=== PATIENT | female | born 1950 | race Caucasian/White ===

== ENCOUNTER 2016-10-09 13:13 | Outpatient (CLI) | payer MEDICARE | END 2016-10-09 13:14 | disposition home or self-care (01) | DX: F41.1 Generalized anxiety disorder (principal); I10 Essential (primary) hypertension; J44.9 Chronic obstructive pulmonary disease, unspecified ==

== ENCOUNTER 2017-01-06 14:22 | Outpatient (CLI) | payer MEDICARE | END 2017-01-06 14:23 | disposition home or self-care (01) | DX: R19.7 Diarrhea, unspecified (principal); E78.00 Pure hypercholesterolemia, unspecified ==

== ENCOUNTER 2018-03-24 06:52 | Day surgery (SDC) | payer MEDICARE, OTHER ==
[2018-03-24] MEDS: LACTATED RINGERS 1,000 ML IV ONE (07:29)
[2018-03-24] MEDS ORDERED: MIDAZOLAM 2 MG/2 ML VIAL IVP ONE (08:30)
[2018-03-24] MEDS ORDERED: fentaNYL 250 MCG/5 ML VIAL IVP ONE (08:30)
[2018-03-24 09:23] VITALS: BP 107/67
== END 2018-03-24 06:53 | disposition home or self-care (01) ==
LOC: SDS 06:52
PROVIDERS: ATTEND Surgery
PROC: 0DBP8ZX Excision of Rectum, Via Natural or Artificial Opening Endoscopic, Diagnostic (ICD-10-PCS; 2018-03-24)
PROC: 0DBN8ZX Excision of Sigmoid Colon, Via Natural or Artificial Opening Endoscopic, Diagnostic (ICD-10-PCS; principal; 2018-03-24 08:15)
DX: R19.7 Diarrhea, unspecified (principal); K57.30 Diverticulosis of large intestine without perforation or abscess without bleeding; D12.5 Benign neoplasm of sigmoid colon; K62.1 Rectal polyp; I10 Essential (primary) hypertension; J44.9 Chronic obstructive pulmonary disease, unspecified; Z79.82 Long term (current) use of aspirin
CPT/HCPCS: 45380; 45384; J3010; J7120; 88305

== ENCOUNTER 2018-10-27 09:27 | Outpatient (CLI) | payer MEDICARE, OTHER ==
--- NOTE | 2018-10-27 11:28 | MRI Report ---
Reason: CERVICALGIA Procedure Date: 10/27/2018 Accession Number: [id number] / [id number] Procedure: MRI - Cervical Spine W/O CPT Code: FULL RESULT: EXAM: MRI CERVICAL SPINE WITHOUT CONTRAST EXAM DATE: 10/27/2018 09:53 AM. CLINICAL HISTORY: Cervicalgia. Headaches and right-sided neck pain. COMPARISONS: None. TECHNIQUE: Multiplanar, multisequence T1-weighted and fluid-sensitive sequences of the cervical spine without contrast. Other: None. FINDINGS: Neurologic Structures: The visualized posterior fossa structures are unremarkable. No focal signal abnormality of the cervical spinal cord. Alignment: Alignment is abnormal. Mild degenerative anterior subluxation of C3 on C4 and C4 on C5. Mild degenerative C6 on C7 retrolisthesis is present. Cervical kyphosis is also present. Bone Marrow: Multilevel abnormal loss of the fatty marrow signal most evident involving the odontoid process and the vertebral bodies on both sides of markedly arthritic disk spaces in the cervical spine, especially severe at C5-C6 and C6-C7. The overall pattern favors a reactive arthritic change. Infection and tumor is less likely. Interspace Levels/Facets: C1-C2: Moderately prominent hypertrophic degenerative changes around the odontoid process. Prominent abnormal marrow edema of the odontoid process and the articulating lateral masses on the right. Increased fluid signal in the right lateral mass articular space. These findings are nonspecific but most likely secondary to reactive and degenerative changes from some form of arthritis. Tumor and infection is less likely. Generalized hypertrophic degenerative changes around the odontoid process are present. This is associated with only minimal ventral thecal sac indentation in the central canal is patent. C2-C3: Mild degenerative disk disease. Moderate to severe left-sided facet arthropathy. Minimal disk bulge. Patent central canal and right foramen. Mild foraminal stenosis on the left. C3-C4: Moderate degenerative disk disease. Moderate to severe bilateral facet arthropathy. Broad-based disk bulge. Mild ventral thecal sac indentation. Minimal central stenosis. No cord compression. Moderately prominent bilateral foraminal stenosis from a combination of bulging annulus, uncinate process spurring and facet arthropathy. Facet joint effusion on the right. Marked facet arthropathy on the right is associated with amorphous periarticular bone and soft tissue edema that is likely reactive and degenerative. Infectious spondylitis is a less likely diagnostic consideration but clinical correlation is suggested. C4-C5: Moderate degenerative disk disease. Minimal disk bulge. Patent central canal. Potentially severe facet arthropathy. Bilateral uncinate process spurring. These degenerative changes along with C4 on C5 anterolisthesis create the appearance of at least moderate if not severe bilateral foraminal stenosis. C5-C6: Moderate to severe degenerative disk disease. Marginal spurring and broad-based bulge. Ventral and dorsal CSF space effacement. Mild to moderate central canal stenosis. Minimal if any cord indentation anteriorly by disk bulge. Moderate facet arthropathy. Moderate to severe bilateral foraminal stenosis. C6-C7: Moderate to severe degenerative disk disease. Marginal spurring and broad-based bulge. Mild to moderate central canal stenosis without cord compression. Ventral thecal sac effacement is present by broad-based bar-like posterior disk osteophyte complex. Moderately prominent facet arthropathy. Uncinate process spurring. Potentially severe foraminal stenosis bilaterally. C7-T1: Mild facet arthropathy. Intact disk space. No disk herniation or significant stenosis. Musculature: Minimal to mild diffuse fatty atrophy. Other: No focal prevertebral edema. No abnormal epidural fluid collection. IMPRESSION: 1. Multilevel cervical spinal malalignment associated with advanced hypertrophic degenerative changes throughout the cervical spine. 2. Multilevel periarticular bone and soft tissue edema is present, more likely reactive and degenerative arthritic changes and from tumor or infection. 3. Diffuse degenerative disk disease, most prominent with central canal stenosis at C5-C6 and C6-C7. 4. Potentially significant degenerative foraminal stenosis bilaterally at multiple cervical levels as detailed above. RADIA
== END 2018-10-27 09:28 | disposition home or self-care (01) ==
LOC: DI 09:27
PROVIDERS: ATTEND Registered Nurse
DX: M50.31 Other cervical disc degeneration, high cervical region (principal); M48.02 Spinal stenosis, cervical region; M47.9 Spondylosis, unspecified; M43.12 Spondylolisthesis, cervical region
CPT/HCPCS: 72141

== ENCOUNTER 2018-12-03 09:36 | Outpatient (CLI) | payer MEDICARE, OTHER ==
--- NOTE | 2018-12-03 15:20 | XRAY Report ---
Reason: PAIN IN RIGHT FOOT Procedure Date: 12/03/2018 Accession Number: [id number] / [id number] Procedure: XR - Foot 3 View RT CPT Code: FULL RESULT: EXAM: RIGHT FOOT RADIOGRAPHY EXAM DATE: 12/03/2018 10:38 AM. CLINICAL HISTORY: Pain in right foot. COMPARISON: None. TECHNIQUE: 3 views. FINDINGS: Bones: The bones are qualitatively osteopenic; this limits evaluation for underlying fractures or masses. No fracture or dislocation is identified. Joints: Normal. No subluxations. Soft Tissues: Normal. No soft tissue swelling. IMPRESSION: No fracture or dislocation is identified. RADIA
== END 2018-12-03 09:37 | disposition home or self-care (01) ==
LOC: DI 09:36
PROVIDERS: ATTEND Internal Medicine
DX: M79.671 Pain in right foot (principal)

== ENCOUNTER 2019-12-17 10:04 | Outpatient (CLI) | payer MEDICARE, OTHER ==
--- NOTE | 2019-12-17 13:43 | MRI Report ---
Reason: EXPRESSIVE DYSPHAGIA Procedure Date: 12/17/2019 Accession Number: [id number] / [id number] Procedure: MRI - Brain W/O CPT Code: Final Report FULL RESULT: EXAM: MRI BRAIN WITHOUT CONTRAST EXAM DATE: 12/17/2019 11:06 AM. CLINICAL HISTORY: Expressive dysphagia. Memory issues for the past year. COMPARISON: None. TECHNIQUE: Multiplanar, multisequence T1-weighted and fluid-sensitive MR sequences of the brain were performed. Sequences optimized for routine evaluation. Other: None. IV Contrast: None. FINDINGS: Brain Volume: Normal for age. Parenchyma/Dura: No mass, acute infarct or hemorrhage. Mild to moderate multifocal cerebral white matter disease. Scattered patchy and nodular T2 hyperintensities which are present are nonspecific but likely attributable to aging and chronic microangiopathy. No mass effect, midline shift or abnormal subdural fluid collection. Ventricles/Cisterns: No hydrocephalus. No abnormal extra-axial fluid collection or hemorrhage. Orbits: Symmetric and unremarkable. Sella Turcica: No space-occupying lesion. IAC: Grossly symmetric and unremarkable as far as can be determined, allowing for the inherent limitations of noncontrast imaging technique. Vasculature: The major arterial skull base flow voids are present. Sinuses: Negligible paranasal sinus mucosal thickening. Clear mastoids. Bones: Prominent C2 vertebral marrow edema especially of the odontoid process and adjacent body. There also appear to be erosive cortical changes of the odontoid process and there is surrounding soft tissue thickening. Mild effacement of the ventral CSF space at the C1 level without cord compression. No focal pathologic appearing marrow signal changes in the skull and clivus. Other: None. IMPRESSION: 1. No acute intracranial abnormality. 2. Mild to moderate chronic appearing white matter T2 hyperintense signal change is likely attributable to aging and chronic microangiopathy. 3. Prominent abnormality of the C2 vertebra including marrow edema and cortical irregularity. This is likely related to reactive arthritic changes. Infection and tumor are less likely differential considerations. RADIA
== END 2019-12-17 10:05 | disposition home or self-care (01) ==
LOC: DI 10:04
PROVIDERS: ATTEND Nurse Practitioner Family
DX: F80.1 Expressive language disorder (principal)
CPT/HCPCS: 70551

== ENCOUNTER 2020-05-30 13:01 | Outpatient (CLI) | payer MEDICARE, OTHER ==
[2020-06-02 19:02] LABS: TREPONEMA AB IGG NEGATIVE
[2020-06-03 08:22] LABS: METHYLMALONIC ACID 295 nmol/L (87-318)
== END 2020-05-30 13:02 | disposition home or self-care (01) ==
LOC: LAB.S 13:01
PROVIDERS: ATTEND Psychiatry & Neurology Neurology
DX: R41.3 Other amnesia (principal)
CPT/HCPCS: 36415; 82607; 83921; 86780

== ENCOUNTER 2021-01-31 11:12 | Outpatient (CLI) | payer MEDICARE, OTHER ==
--- NOTE | 2021-01-31 12:49 | XRAY Report ---
PROCEDURE: Shoulder 3 View RT INDICATIONS: PAIN OF RIGHT SHOULDER JOINT TECHNIQUE: 3 views of the shoulder were acquired. COMPARISON: None. FINDINGS: Bones: No fractures or dislocations but there is severe degenerative change at the right shoulder, m ost pronounced at the glenohumeral joint but also present to a moderate degree at the acromioclavicul ar joint. There is essentially alci-bn-tcqp articulation at the glenohumeral joint.. No suspicious b malena lesions. Visualized ribs appear intact. Soft tissues: No suspicious soft tissue calcifications. IMPRESSION: No acute trauma found but there is severe glenohumeral joint and moderate acromioclavicu lar joint degenerative osteoarthritis. Reviewed by: Dexter Goldsmith MD on 01/31/2021 12:48 PM PDT Approved by: Dexter Goldsmith MD on 01/31/2021 12:48 PM PDT Station ID: [id number]
== END 2021-01-31 11:13 | disposition home or self-care (01) ==
LOC: DI.S 11:12
PROVIDERS: ATTEND Registered Nurse
DX: M19.011 Primary osteoarthritis, right shoulder (principal)

== ENCOUNTER 2021-03-09 13:18 | Outpatient (CLI) | payer MEDICARE, OTHER ==
[2021-03-09] MEDS ORDERED: IOTHALAMATE MEGLUMINE 50 ML VIAL ONE (13:25)
[2021-03-09] MEDS ORDERED: ROPIVACAINE 0.5% PF 20 ML AMPULE ONE (13:28)
[2021-03-09] MEDS ORDERED: TRIAMCINOLONE 40 MG/ML VIAL ONE (13:28)
[2021-03-09] MEDS ORDERED: BUFFERED LIDOCAINE 10 ML SYRINGE ONE (13:28)
[2021-03-09] MEDS ORDERED: BUFFERED LIDOCAINE 10 ML SYRINGE IU ONE (14:43)
--- NOTE | 2021-03-09 14:43 | XRAY Report ---
PROCEDURE: Inj/Aspiration Major Joint INDICATIONS: OSTEOARTHRITIS GLENOHUMERAL JOINT CONTRAST: CONTRAST: 3ml FLUORO TIME: FLUORO TIME: .2 and NUMBER IMAGES: 1 TECHNIQUE: The indications, alternatives, benefits, risks, and complications of the procedure were explained to the patient. Written informed consent was obtained and placed in the chart. The patient was placed in an appropriate position on the fluoroscopy table, and a site was chosen for percutaneous access un lilian fluoroscopic guidance. Local anesthetic was administered using a 1% lidocaine solution. A hypod ermic or spinal needle was then used to access the symptomatic joint. Intra-articular location of th e needle tip was confirmed by injecting a small amount of contrast, followed by steroid administratio n. The needle was then withdrawn, and a bandage applied to the puncture site. FINDINGS: Joint injected: Right glenohumeral joint Medications injected: 5 mL of 40 mg/mL Kenalog and 0.5% Ropivacaine mixture. Complications: None. IMPRESSION: Successful fluoroscopically guided administration of steroid and anaesthetic solution into the right glenohumeral joint. Reviewed by: Juan Treadwell MD on 03/09/2021 2:42 PM PDT Approved by: Juan Treadwell MD on 03/09/2021 2:42 PM PDT Station ID: [id number]
[2021-03-09] MEDS ORDERED: IOTHALAMATE MEGLUMINE 50 ML VIAL IVP ONE (14:44)
[2021-03-09] MEDS ORDERED: ROPIVACAINE 0.5% PF 20 ML AMPULE IU ONE (14:45)
[2021-03-09] MEDS ORDERED: TRIAMCINOLONE 40 MG/ML VIAL IM ONE (14:48)
== END 2021-03-09 13:19 | disposition home or self-care (01) ==
LOC: DI 13:18
PROVIDERS: ATTEND Orthopaedic Surgery
DX: M19.011 Primary osteoarthritis, right shoulder (principal)
CPT/HCPCS: 20610; 77002; Q9961

== ENCOUNTER 2023-01-09 08:00 | Outpatient (CLI) | payer MEDICARE, OTHER | END 2023-01-09 23:59 | disposition home or self-care (01) | LOC: LAB.S 08:00 | PROVIDERS: ATTEND Physician Assistant Medical | DX: R35.0 Frequency of micturition (principal) | CPT/HCPCS: 87086 ==

== ENCOUNTER 2023-11-08 16:00 | Outpatient (CLI) | payer MEDICARE, OTHER | END 2023-11-08 16:01 | disposition EMS.NT | LOC: EMS 16:00 | DX: M25.531 Pain in right wrist (principal); M21.931 Unspecified acquired deformity of right forearm; R04.0 Epistaxis; S69.91XA Unspecified injury of right wrist, hand and finger(s), initial encounter; W01.0XXA Fall on same level from slipping, tripping and stumbling without subsequent striking against object, initial encounter; Y92.512 Supermarket, store or market as the place of occurrence of the external cause ==

== ENCOUNTER 2023-11-08 16:41 | Emergency (ER) | payer MEDICARE, OTHER ==
[2023-11-08 16:49] VITALS: BP 160/66; O2SAT 97
--- NOTE | 2023-11-08 17:04 | ED Physician Documentation ---
History of Present Illness - Stated complaint Stated Complaint: R WRIST INJ - Chief complaint Chief Complaint: Trauma Ext - History obtained from History obtained from: Patient, Family - History of Present Illness Timing: Today Pain level max: 6 Pain level now: 6 - Additonal information Additional information: 72-year-old female history of dementia presents with her family. She fell out of the truck today landed on the right wrist with deformity. Has an abrasion to the right side of the head. Not on blood thinners. Worse with movement, better with rest. No loss of consciousness. No vomiting. No seizure activity. Was able to ambulate after the event. Review of Systems Unable to obtain: Dementia Constitutional: denies: Fever GI: denies: Vomiting, Diarrhea Skin: denies: Rash Musculoskeletal: denies: Neck pain Neurologic: denies: Seizure PD PAST MEDICAL HISTORY - Past Medical History Past Medical History: Yes Cardiovascular: Hypertension Respiratory: None Endocrine/Autoimmune: None GI: None : None HEENT: Chronic vision loss Psych: None Musculoskeletal: Osteoarthritis Derm: None - Past Surgical History Past Surgical History: Yes /[employer]: Hysterectomy, Other - Present Medications Home Medications: Ambulatory Orders Medication Instructions Recorded Confirmed amLODIPine [Norvasc] 5 mg PO DAILY 03/23/18 03/24/18 Antidepressant 03/24/18 HYDROcod/ACETAM 5/325 [[place] 5/325] 1 - 2 ea PO Q6H PRN #14 tablet 11/08/23 - Allergies Allergies/Adverse Reactions: Allergies Allergy/AdvReac Type Severity Reaction Status Date / Time No Known Drug Allergies Allergy Verified 11/08/23 16:43 - Social History Does the pt smoke?: No Smoking Status: Never smoker Does the pt drink ETOH?: No Does the pt have substance abuse?: No - Immunizations Immunizations are current?: Yes PD ED PE NORMAL - Vitals Vital signs reviewed: Yes - General General: No acute distress, Other (Alert, pleasantly confused) - HEENT HEENT: PERRL, EOMI, Ears normal, Other (small abrasion to the R side of the periorbital area.) - Neck Neck: Supple, no meningeal sign, No bony TTP - Cardiac Cardiac: RRR - Respiratory Respiratory: No respiratory distress, Clear bilaterally - Abdomen Abdomen: Soft, Non tender, Non distended - Back Back: No spinal TTP - Derm Derm: Warm and dry - Extremities Extremities: Other (Deformity noted to the right wrist. Swelling present. Neurovascular intact. 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, No motor deficit, No sensory deficit, Normal speech Eye Opening: Spontaneous Motor: Obeys Commands Verbal: Confused GCS Score: 14 - Psych Psych: Normal mood, Normal affect Results - Vitals Vitals: Vital Signs - 24 hr 11/08/23 11/08/23 16:43 20:20 Temperature 36.8 C Heart Rate 60 Respiratory 16 16 Rate Blood Pressure 160/66 H O2 Saturation 97 Oxygen O2 Source Room air - Rads (name of study) CT head Relevant Findings:: Final report received, See rad report CT maxillofacial Relevant Findings:: Final report received, See rad report ct c spine Relevant Findings:: Final report received, See rad report R wrist xray Relevant Findings:: Final report received, See rad report R wrist xray post reduction Relevant Findings:: Final report received, See rad report Procedures - Splint (location) - Minor R wrist Splint applied by: Physician, Tech Type of splint: Sugar tong Other: Patient tolerated well, No complications, Neurovascular intact, Sling provided - Reduction Body part reduced: Right, Wrist Fracture or dislocation: Fracture Anesthesia: Hematoma block, Lidocaine (enter cc) (8) Reduction aftercare: NV intact, Xray confirms reduction, Alignment improved, Splint applied, Sling, Patient tolerated well PD Medical Decision Making - ED course Complexity details: reviewed results, re-evaluated patient, considered differential, d/w patient, d/w health care consultant ED course: 72-year-old female presents to the emergency department after a fall today, has obvious deformity of the right wrist. Hematoma block performed and the fracture was reduced. Discussed with Dr. August, orthopedics, will follow-up in the clinic. There are no acute findings on head CT, cervical spine CT or maxillofacial CT. Ambulating well in the emergency department. No evidence of hip fracture. Nontender over the spine. Abdomen is soft, nontender nondistended. Patient placed in a sling and splint. Neurovascular intact. Pain well-controlled. There is a small abrasion to the right periorbital area that was oozing a small amount of blood, therefore dermabond was applied to the area after cleaning. Patient and family counseled regarding signs and symptoms for which I believe and urgent re-evaluation would be necessary. Patient with good understanding of and agreement to plan and is comfortable going home at this time This document was made in part using voice recognition software. While efforts are made to proofread this document, sound alike and grammatical errors may occur. Departure - Departure Disposition: 01 Home, Self Care Clinical Impression: Distal radius fracture, right Qualifiers: Encounter type: initial encounter Fracture type: closed Fracture morphology: unspecified fracture morphology Qualified Code(s): S52.501A - Unspecified fracture of the lower end of right radius, initial encounter for closed fracture Right distal ulnar fracture Qualifiers: Encounter type: initial encounter Fracture type: closed Fracture morphology: unspecified fracture morphology Qualified Code(s): S52.601A - Unspecified fracture of lower end of right ulna, initial encounter for closed fracture Closed head injury Qualifiers: Encounter type: initial encounter Qualified Code(s): S09.90XA - Unspecified injury of head, initial encounter Facial laceration Qualifiers: Encounter type: initial encounter Qualified Code(s): S01.81XA - Laceration without foreign body of other part of head, initial encounter Condition: Good Instructions: ED Fx Upper Ext, ED Head Injury Closed Follow-Up: your,doctor in 1 week [Other] [facility] [Provider Group] - Within 1 week Prescriptions: HYDROcod/ACETAM 5/325 [[place] 5/325] 1 - 2 ea PO Q6H PRN #14 tablet PRN Reason: Pain Comments: Please follow-up with your doctor for further care. Please return if you worsen. It is importantly follow-up with orthopedics. I spoke with Dr. August, orthopedics [facility], he will see you in the clinic next week. Please call tomorrow to make an appointment. Your prescriptions were sent to [facility] in [place]. The glue on your head will dissolve on its own, do not apply any ointments as this may dissolve the glue early. Your head CT, maxillofacial CT T and C-spine CT do not show any acute abnormalities. I am prescribing a short course of narcotic pain medication for you. These are potentially dangerous and addictive medications that should be used carefully. These medications may constipate you. Take an tvhz-yyp-snwliih stool softener (docusate) twice daily with plenty of water while taking these medications. If you go 24 hours without a bowel movement, take fkde-wzv-kxatvvg miralax, per package instructions. Do not drink or drive while taking these medications. If you received narcotic or sedating medications while in the emergency department, do not drive for 24 hours. Store this medication in a safe, secure place and out of reach of children. It is a violation of federal law to give or sell this medication to another person or to use in a manner other than prescribed. The ED will not refill narcotic prescriptions, including prescriptions lost or stolen. To dispose of unwanted medications: 1. [facility] [address] in [place] has a medication drop box. They accept prescription medications (in pill form) Friday through Friday 9:00 a.m. to 5:00 p.m. 2. The [facility] [employer] accepts prescription medications (in pill form only) for disposal year round. Call for more information. 3. Contact the [facility] for the next [facility] sponsored prescription drug collection event. , [phone], or [phone]; Forms: PCP List Discharge Date/Time: 11/08/23 20:21
[2023-11-08] MEDS: oxyCODONE 5 MG TABLET PO STA (17:15)
[2023-11-08] MEDS: lidocaine 1% 20 ML MDV SUBQ STA (17:52)
--- NOTE | 2023-11-08 19:00 | XRAY Report ---
PROCEDURE: Wrist 1-2V RT INDICATIONS: post reduction TECHNIQUE: 2 views of the wrist were acquired. COMPARISON: Same-day wrist x-ray.. FINDINGS: Bones: Status post reduction of comminuted distal radial fracture with displacement and posterior an gulation of the distal fracture fragment. While alignment is improved, there is still significant dis placement. Displaced fracture. No suspicious bony lesions. Soft tissues: No suspicious soft tissue calcifications or masses. IMPRESSION: Comminuted fractures of distal radius status post reduction with improvement in alignment however the re is persistent displacement. Ulnar sided fracture. Reviewed by: Ralf Sprague MD on 11/08/2023 6:59 PM PST Approved by: Ralf Sprague MD on 11/08/2023 6:59 PM PST Station ID: [id number]
--- NOTE | 2023-11-08 19:02 | XRAY Report ---
PROCEDURE: Wrist 3+V RT INDICATIONS: fall, pain TECHNIQUE: 3 views of the wrist were acquired. COMPARISON: None FINDINGS: Bones: Generalized decreased osseous mineralization present.. Comminuted fractures of the distal rad ius noted with impaction and dorsal displacement by over 1 bone diameter. There is foreshortening. Ul lily styloid fracture. Soft tissues: No suspicious soft tissue calcifications or masses. IMPRESSION: Comminuted intra-articular fracture with significant dorsal displacement and foreshortening with over lapping fracture fragments. Reviewed by: Ed Wang MD on 11/08/2023 6:01 PM [place] Approved by: Ed Wang MD on 11/08/2023 6:01 PM [place] Station ID: [id number]
--- NOTE | 2023-11-08 19:05 | CT Report ---
PROCEDURE: CT brain without contrast INDICATIONS: fall, pain TECHNIQUE: Helical axial CT of the brain was obtained without contrast and reformatted in multiple p lanes. Radiation dose reduction was achieved using automated exposure control or adjustment of mA and /or kV according to patient size. COMPARISON: MRI brain 12/17/2019 FINDINGS: CSF spaces: Ventricles are appropriate in size and position. No hydrocephalus. Basal cisterns unre markable. Brain: No midline shift. No intracranial masses or hemorrhage. Ford-white matter interface is norm al. Moderate atrophy and multifocal white matter chronic ischemic change noted. Atherosclerotic vascular calcification noted in the cavernous segments of both internal carotid arteries. Skull and face: Calvarium and skull base are unremarkable without suspicious lesion. Sinuses: Visualized sinuses and mastoids are clear. IMPRESSION: Atrophy and chronic ischemic change without intracranial hemorrhage or mass effect Reviewed by: Ed Wang MD on 11/08/2023 6:03 PM AKST Approved by: Ed Wang MD on 11/08/2023 6:03 PM AKST Station ID: [id number]
--- NOTE | 2023-11-08 19:14 | CT Report ---
PROCEDURE: Max facial CT without contrast INDICATIONS: fall, pain TECHNIQUE: Helical axial CT of the facial structures and mandible were obtained without intravenous contrast and reformatted in multiple planes. Radiation dose reduction was achieved using automated e xposure control and adjustment of mA and/or kV according to patient size. COMPARISON: None. FINDINGS: Maxillofacial Bones: The zygomaticomaxillary complex is intact. The pterygoid plates and skull base are unremarkable. No evidence of fracture or lytic lesion. Mandible: The mandible is intact without fracture. Unremarkable temporomandibular articulation. Dentition: Unremarkable mandibular and maxillary dentition. Soft tissues: Right periorbital soft tissue swelling Orbits: The osseous orbits, globes and ocular muscles unremarkable. Sinuses and Mastoid: The visualized portion of the paranasal sinuses and mastoids are normal. No air -fluid levels or wall fractures. The nasal vault is unremarkable. IMPRESSION: Periorbital soft tissue swelling without maxillofacial fracture or intraorbital traumatic injury Reviewed by: Ed Wang MD on 11/08/2023 6:13 PM [facility] Approved by: Ed Wang MD on 11/08/2023 6:13 PM [facility] Station ID: [id number]
--- NOTE | 2023-11-08 19:42 | CT Report ---
PROCEDURE: CT cervical spine without contrast INDICATIONS: fall, pain TECHNIQUE: Helical axial CT of the cervical spine was obtained without contrast and reformatted in m ultiple planes. Radiation dose reduction was achieved utilizing automated exposure control or adjus tment of mA and/or kV according to patient size. COMPARISON: 10/27/2018 FINDINGS: Bones: There is reversal of the normal cervical lordosis. Degenerative anterior listhesis at C3-4 ass ociated with hypertrophic facet joints. Degenerative disc disease and arthropathy results in moderate central stenosis C5-6 and C6-7. No evidence of fracture or traumatic malalignment. Soft tissues: Prevertebral soft tissues are normal in thickness. No paravertebral hematomas. No ap ical pneumothoraces. IMPRESSION: Advanced degenerative disc disease and arthropathy without evidence of fracture or traumatic malalign ment. Generative anterior spinal listhesis C3-4 stable from the prior Reviewed by: Ed Wang MD on 11/08/2023 6:40 PM [place] Approved by: Ed Wang MD on 11/08/2023 6:40 PM [place] Station ID: [id number]
[2023-11-08] MEDS: HYDROcod/ACET 5/325 Prepack 4 PO STA (20:09)
== END 2023-11-08 20:21 | disposition home or self-care (01) ==
LOC: ED 16:41
DX: S52.501A Unspecified fracture of the lower end of right radius, initial encounter for closed fracture (principal); S52.601A Unspecified fracture of lower end of right ulna, initial encounter for closed fracture; S01.81XA Laceration without foreign body of other part of head, initial encounter; W17.89XA Other fall from one level to another, initial encounter; I10 Essential (primary) hypertension
CPT/HCPCS: 25605; 70450; 70486; 72125; 73100; 73110; 99284; A9270

== ENCOUNTER 2023-11-17 09:30 | Outpatient (CLI) | payer MEDICARE, OTHER ==
--- NOTE | 2023-11-17 15:36 | XRAY Report ---
PROCEDURE: Wrist 3 View RT INDICATIONS: RIGHT WRIST PAIN TECHNIQUE: 3 views of the wrist were acquired. COMPARISON: 11/08/2023. FINDINGS: Bones: Comminuted and displaced fracture of the distal radius is similar in appearance to prior. Red emonstration of ulnar styloid fracture. Decreased osseous mineralization and degenerative changes are redemonstrated. Soft tissues: No suspicious soft tissue calcifications or masses. IMPRESSION: Stable appearance of comminuted and displaced fracture of the distal radius. Stable ulnar styloid fra cture. Reviewed by: Ralf Sprague MD on 11/17/2023 3:35 PM PST Approved by: Ralf Sprague MD on 11/17/2023 3:35 PM PST Station ID: [id number]
== END 2023-11-17 23:59 | disposition home or self-care (01) ==
LOC: DI.WOS 09:30
PROVIDERS: ATTEND Orthopaedic Surgery
DX: S52.551A Other extraarticular fracture of lower end of right radius, initial encounter for closed fracture (principal); S52.611A Displaced fracture of right ulna styloid process, initial encounter for closed fracture

== ENCOUNTER 2023-11-17 14:01 | Day surgery (SDC) | payer MEDICARE, OTHER ==
[2023-11-17] MEDS: LACTATED RINGERS 1,000 ML IV ONE (14:21)
[2023-11-17] MEDS ORDERED: LIDOCAINE-PF 2% 10 ML AMP SUBQ ONE (14:45)
[2023-11-17] MEDS ORDERED: ROPIVACAINE 0.5% PF 20 ML VIAL ONE (14:45)
[2023-11-17] MEDS ORDERED: fentaNYL 100 MCG/2 ML VIAL ONE (14:47)
[2023-11-17] MEDS ORDERED: ONDANSETRON 4 MG/2 ML VIAL IVP PRN (14:57)
[2023-11-17] MEDS ORDERED: ePHEDrine 50 MG/ML VIAL IVP PRN (14:57)
[2023-11-17] MEDS ORDERED: fentaNYL 100 MCG/2 ML VIAL IVP PRN (14:57)
[2023-11-17] MEDS ORDERED: METOCLOPRAMIDE 10 MG/2 ML VIAL IVP PRN (14:57)
[2023-11-17] MEDS ORDERED: HYDROmorphone 0.5 MG/0.5 ML SYRINGE IVP PRN (14:57)
[2023-11-17] MEDS ORDERED: NALOXONE 0.4 MG/ML VIAL IVP PRN (14:57)
[2023-11-17] MEDS ORDERED: MORPHINE 2 MG/ML CARPUJECT IVP PRN (14:57)
[2023-11-17] MEDS ORDERED: ATROPINE ABBOJECT 1 MG/10 ML SYRINGE IVP PRN (14:57)
--- NOTE | 2023-11-17 14:57 | ANESTHESIA ---
Pre-Anesthesia VS, & Labs - Diagnosis fx r distal radius - Procedure closed reduction r distal radius Vital Signs: Temp Pulse Resp BP Pulse Ox O2 Flow Rate 36.3 C L 73 16 182/87 H 99 11/17/23 14:10 11/17/23 14:10 11/17/23 14:10 11/17/23 14:10 11/17/23 14:10 Height: 5 ft 1 in Weight (kg): 42 kg Body Mass Index: 17.4 BMI Classification: Underweight - NPO >8 hours - Is Patient ?: No - Lab Results Lab results reviewed: Yes Home Medications and Allergies Home Medications: Ambulatory Orders Escitalopram [Lexapro] 20 mg PO DAILY 11/17/23 Gabapentin [Neurontin] 100 mg PO TID 11/17/23 Memantine [Namenda] 10 mg PO BID 11/17/23 traZODone [Desyrel] 50 mg PO HS 11/17/23 Escitalopram [Lexapro] 20 mg PO DAILY 11/17/23 Gabapentin [Neurontin] 100 mg PO TID 11/17/23 Memantine [Namenda] 10 mg PO BID 11/17/23 traZODone [Desyrel] 50 mg PO HS 11/17/23 Allergies/Adverse Reactions: Allergies Allergy/AdvReac Type Severity Reaction Status Date / Time lisinopril Allergy Unknown Verified 11/17/23 14:31 Anes History & Medical History - Anesthetic History Anesthesia Complications: reports: No previous complications Family history of Anesthesia Complications: Denies Family history of Malignant Hyperthermia: Denies - Medical History Cardiovascular: reports: Hypertension Pulmonary: reports: None Gastrointestinal: reports: Colon polyps, Chronic diarrhea Urinary: reports: None Neuro: reports: Alzhiemer's, Dementia Musculoskeletal: reports: Osteoarthritis, Osteopenia Endocrine/Autoimmune: reports: None Skin: reports: None Smoking Status: Never smoker Psychosocial: reports: Alcohol, Cannabis History of Cancer?: No - Surgical History Gynecologic: reports: Hysterectomy, Other Exam General: Alert, Oriented x3, Cooperative Dental: Dentures full Lower (out), Poor dentition Mouth Openin Fingerbreadth Mallampati classification: II Thyromental Distance: 4-6 cm Respiratory: Lungs clear, Normal breath sounds, No respiratory distress Cardiovascular: Regular rate Neurological: Normal speech Mental/Cognitive Status: Alert/Oriented X3, Normal for patient Plan Anesthesia Type: MAC, Supraclavicular Block Consent for Procedure(s) Verified and Reviewed: Yes Code Status: Attempt Resuscitation ASA classification: 3-Severe systemic disease Is this case an emergency?: Yes
[2023-11-17] MEDS ORDERED: LACTATED RINGERS 1,000 ML IV SCH (15:00)
[2023-11-17] MEDS: MIDAZOLAM 2 MG/2 ML VIAL ONE (15:42)
[2023-11-17] MEDS ORDERED: ceFAZolin 1 GM VIAL ONE (17:29)
[2023-11-17] MEDS ORDERED: BACITRACIN ZINC OINT 1 PACKET TOP ONE (17:47)
[2023-11-17] MEDS ORDERED: DEXAMETHASONE 4 MG/ML VIAL ONE (17:59)
[2023-11-17] MEDS ORDERED: ONDANSETRON 4 MG/2 ML VIAL ONE (17:59)
[2023-11-17] MEDS: LACTATED RINGERS 100 ML IV ONE ×2 (18:19→18:55)
[2023-11-17] MEDS ORDERED: HYDROcod/ACETAM 5/325 MG TABLET PO PRN (18:28)
[2023-11-17] MEDS ORDERED: HYDROcod/ACETAM 10 MG/325 MG TABLET PO PRN (18:28)
--- NOTE | 2023-11-17 18:37 | ANESTHESIA POST OP EVALUATION ---
Anesthesia Post Eval - Post Anesthesia Eval Vitals: Last Vital Signs Temp 36.0 C L 11/17/23 18:35 Pulse 65 11/17/23 18:35 Resp 15 11/17/23 18:35 BP 174/81 H 11/17/23 18:35 Pulse Ox 96 11/17/23 18:35 O2 Flow Rate CV Function Including HR & BP: Stable Pain Control: Satisfactory Nausea & Vomiting: Negative Mental Status: Baseline Respiratory Status: Airway Patent Hydration Status: Satisfactory Anesthesia Complications: None
--- NOTE | 2023-11-17 18:40 | OPERATIVE REPORT ---
Operative Report - General Procedure Date: 11/17/23 Planned Procedure: Closed reduction and pinning of displaced right distal radius fracture Pre-Op Diagnosis: Closed displaced and shortened right dominant distal radius fracture Procedure Performed: Closed reduction of multiple pin fixation of right distal radius fracture Post Op Diagnosis: Same - Procedure Note Primary Surgeon: Yady August MD Anesthesia Provider: Jon Santos CRNA Anesthesia Technique: General ET tube, Regional block Estimated Blood Loss (mL): 5 Complications: None - Other Other Information/Narrative: Patient was taken to the operating room in afternoon of 17 November she where she had a regional block performed and she was also lightly sedated. We then applied Danish finger traps to her index and middle fingers. We then applied 5 pounds of traction across her fracture. After several minutes of traction we manipulated fracture and essentially brought the fracture out to length. There was about 3 mm of the translation radial but this was felt to be acceptable. Making 3 small puncture wounds with a #15 scalpel blade we then proceeded to insert with power drill three 2 mm diameter smooth K wires across the fracture first started at the tip of the ring radial styloid and exited in the radial shaft; the second started over the dorsum of the distal radius and again exited proximally in the radial shaft; the last pin started at the distal ulnar and cr ossed into the distal radial fragment. Fluoroscopic views showed the fracture to be essentially out the length and in satisfactory position. We then cut the 3 K wires proud and applied Nicola balls to the exposed end of the pin. Neosporin ointment and 2 x 2's then used to dress the pin tract sites. Sterile Webril was applied to the upper extremity. Sugar-tong splint made out of plaster was then applied. We then applied a singular layer of plaster to hold the splint in place and minimize the chance of the patient inadvertently picking at her splint to when she wakes up. We did not expect any postoperative swelling at her fracture site though the splint should accommodate any small amount of swelling that could occur. Intraoperative complications: None Plan: Patient will be seen in clinic in about 2 2 and half weeks for new set of x-rays of her distal radius. At that time depending on how well she is doing we may keep her in her current splint/cast for an additional 2 weeks before taking the splint off and removing her K wires in clinic.
[2023-11-17 19:26] VITALS: BP 189/100; O2SAT 94
--- NOTE | 2023-11-18 17:22 | XRAY Report ---
PROCEDURE: OR C-Arm Procedure INDICATIONS: distal radius fracture FLUORO TIME: 0.5 MIN Dose area product: 30.47 [id number] TECHNIQUE: 3 fluoroscopic images of the right wrist. COMPARISON: Right wrist radiographs 11/17/2023, 11/08/2023. FINDINGS: K wire fixation of the distal radius fracture. There is improved alignment. Ulnar styloid fracture. C asting material is been removed. IMPRESSION: Intraoperative guidance provided. Reviewed by: Ricardo Arias MD on 11/18/2023 5:21 PM PST Approved by: Ricardo Arias MD on 11/18/2023 5:21 PM PST Station ID: [id number]
== END 2023-11-17 19:45 | disposition home or self-care (01) ==
LOC: SDS 14:01 → MS2 17:55 → SDS 19:45
PROVIDERS: ATTEND Orthopaedic Surgery
DX: S52.551A Other extraarticular fracture of lower end of right radius, initial encounter for closed fracture (principal); R63.6 Underweight; I10 Essential (primary) hypertension; Z68.1 Body mass index [BMI] 19.9 or less, adult; G30.9 Alzheimer's disease, unspecified; F02.80 Dementia in other diseases classified elsewhere, unspecified severity, without behavioral disturbance, psychotic disturbance, mood disturbance, and anxiety
CPT/HCPCS: 25606; A9270; J2795; J7120

== ENCOUNTER 2023-11-25 14:00 | Outpatient (CLI) | payer MEDICARE, OTHER ==
--- NOTE | 2023-11-25 16:50 | XRAY Report ---
PROCEDURE: Wrist 3 View RT INDICATIONS: RIGHT WRIST FRACTURE TECHNIQUE: 3 views of the wrist were acquired. COMPARISON: 11/17/2023 FINDINGS: Bones: Fixation with improved alignment of the distal radius fracture. Positive traumatic ulnar vari ance and distal radial ulnar subluxation. Prominent joint space again seen at the STT. First CMC dege nerative changes. Ulnar styloid fracture again seen. Soft tissues: Cast material obscures the limb. IMPRESSION: Improved distal radius alignment following pin fixation. Positive traumatic ulnar variance. Reviewed by: Pedro Desai MD on 11/25/2023 4:49 PM PST Approved by: Pedro Desai MD on 11/25/2023 4:49 PM PST Station ID: [id number]
--- NOTE | 2023-11-25 20:25 | XRAY Report ---
PROCEDURE: Wrist 3 View RT INDICATIONS: RIGHT WRIST FRACTURE POST REDUCTION TECHNIQUE: 3 views of the wrist were acquired. COMPARISON: 11/17/2023. FINDINGS: Bones: Generalized decreased osseous mineralization present. Distal radial fracture transfixed with single K wire shows evidence of interval healing. Overlying cast obscures bony detail Soft tissues: No suspicious soft tissue calcifications or masses. IMPRESSION: Healing distal radial fracture with K wire in place Reviewed by: Ed Wang MD on 11/25/2023 7:24 PM AKST Approved by: Ed Wang MD on 11/25/2023 7:24 PM AKST Station ID: [id number]
== END 2023-11-25 23:59 | disposition home or self-care (01) ==
LOC: DI.WOS 14:00
PROVIDERS: ATTEND Orthopaedic Surgery
DX: S52.551D Other extraarticular fracture of lower end of right radius, subsequent encounter for closed fracture with routine healing (principal); M18.11 Unilateral primary osteoarthritis of first carpometacarpal joint, right hand; S52.611D Displaced fracture of right ulna styloid process, subsequent encounter for closed fracture with routine healing

== ENCOUNTER 2023-12-01 11:23 | Outpatient (CLI) | payer MEDICARE, OTHER ==
--- NOTE | 2023-12-01 17:10 | XRAY Report ---
PROCEDURE: Wrist 3 View RT INDICATIONS: RIGHT WRIST FRACTURE TECHNIQUE: 3 views of the wrist were acquired. COMPARISON: 11/25/2023. FINDINGS: Bones: Removal of K wire pinning of the distal radius. Comminuted and displaced distal radial fractur e plane is largely visible. Displaced ulnar styloid fracture is not significantly changed compared to prior. Degenerative changes, including severe first CMC joint osteoarthrosis are unchanged from prio r. Soft tissues: No suspicious soft tissue calcifications or masses. IMPRESSION: Interval K wire removal. Comminuted distal radial fracture plane remains largely visible. No new frac ture identified. Reviewed by: Darcie Walters MD on 12/01/2023 5:09 PM PST Approved by: Darcie Walters MD on 12/01/2023 5:09 PM PST Station ID: [id number]
== END 2023-12-01 23:59 | disposition home or self-care (01) ==
LOC: DI.WOS 11:23
PROVIDERS: ATTEND Orthopaedic Surgery
DX: S52.551A Other extraarticular fracture of lower end of right radius, initial encounter for closed fracture (principal)

== ENCOUNTER 2023-12-10 08:00 | Outpatient (CLI) | payer MEDICARE, OTHER ==
--- NOTE | 2023-12-10 15:02 | XRAY Report ---
PROCEDURE: Wrist 3+V RT INDICATIONS: INFECTION FOLLOWING SURGICAL PROCEDURE TECHNIQUE: 4 views of the wrist were acquired. COMPARISON: 12/01/2023. FINDINGS: Bones: Redemonstration of comminuted and displaced fracture of the distal radius which is not signif icantly changed in appearance compared to prior. Stable appearance of distal ulnar fracture and ulnar styloid fracture. Redemonstration of degenerative changes. Diffusely decreased osseous position. Soft tissues: No suspicious soft tissue calcifications or masses. IMPRESSION: Stable appearance of comminuted and displaced distal radial fracture and distal ulnar fracture. Reviewed by: Ralf Sprague MD on 12/10/2023 3:00 PM PDT Approved by: Ralf Sprague MD on 12/10/2023 3:00 PM PDT Station ID: [id number]
[2023-12-10 20:08] LABS: BASOPHILS % (AUTO) 0.3 %; EOSINOPHILS # (AUTO) 0.1 10^3/uL (0.0-0.7); EOSINOPHILS % (AUTO) 0.7 %; HCT - HEMATOCRIT 38.6 % (37.0-47.0); HGB - HEMOGLOBIN 12.6 g/dL (12.0-16.0); LYMPHOCYTES % (AUTO) 16.4 %; MEAN CORPUSCULAR HEMOGLOBIN 32.8 pg (27.0-31.0); MEAN CORPUSCULAR HGB CONC 32.6 g/dL (32.0-36.0); MEAN CORPUSCULAR VOLUME 100.5 fL (81.0-99.0); MEAN PLATELET VOLUME 8.5 fL (7.9-10.8); MONOCYTES % (AUTO) 8.2 %; NEUTROPHILS # (AUTO) 8.9 10^3/uL (1.5-6.6); PLT - PLATELET COUNT 495 10^3/uL (130-450); RED BLOOD COUNT 3.84 10^6/uL (4.20-5.40); RED CELL DISTRIBUTION WIDTH 12.9 % (12.0-15.0)
[2023-12-10 20:12] LABS: ALBUMIN 3.5 g/dL (3.2-5.5); ALBUMIN/GLOBULIN RATIO 1.3 (1.0-2.2); BILIRUBIN,TOTAL 0.2 mg/dL (0.2-1.0); CALCIUM 9.1 mg/dL (8.5-10.3); CREATININE 0.7 mg/dL (0.6-1.3); POTASSIUM 3.6 mmol/L (3.5-4.5); TOTAL PROTEIN 6.3 g/dL (6.4-8.9)
== END 2023-12-10 23:59 | disposition home or self-care (01) ==
LOC: DI.S 08:00
PROVIDERS: ATTEND Registered Nurse
DX: S52.551A Other extraarticular fracture of lower end of right radius, initial encounter for closed fracture (principal); S52.691A Other fracture of lower end of right ulna, initial encounter for closed fracture; T81.42XA Infection following a procedure, deep incisional surgical site, initial encounter; M19.031 Primary osteoarthritis, right wrist
CPT/HCPCS: 36415; 80053; 85025; 86140; 87040; 87070; 87181; 87205